=== PATIENT | female | born 1995 | race Caucasian/White ===

== ENCOUNTER 2019-10-25 18:06 | Observation (INO) | payer OTHER, SELFPAY ==
--- NOTE | 2019-10-25 19:14 | PM.OBTRLD ---
Visit Information Visit Information Date of evaluation: 10/25/19 On-call OB Provider: Jessica Koo Reason for Evaluation: Yes other Comments/Additional reasons for admission: nausea and vomitting at 21 weeks Vital Signs Vital Signs: BP 129/75, P80, T 97.7 Evaluation Evaluation Baseline heart rate: 150 Variability: Average (6-10) (appropriate for 21 week gestation) Contraction Frequency (minutes): 15 Uterine Contraction Intensity: Mild Category of Tracing: I (for 21 week) Diagnosis, Plan/Disposition Final Diagnosis (1) 21 weeks gestation of : Current Visit: No Status: Acute (2) Emesis: Current Visit: No Status: Acute Plan/Disposition Plan: Pt with emesis and cramping at 21 weeks. [place] better after 1 liter IV fluids and Zofran OB Disposition: home
[2019-10-25] MEDS: LACTATED RINGERS 1,000 ML 1000 ML IV (19:20)
[2019-10-25] MEDS: ONDANSETRON 4 MG/2 ML INJ IV (19:39)
[2019-10-25 19:56] LABS: Appearance Urine UA CLEAR; Bilirubin Urine UA NEGATIVE (NEGATIVE); Color Urine UA YELLOW; Glucose Urine UA NEGATIVE (Negative); Ketones Urine UA 2+ (NEGATIVE); Leukocyte Esterase Urine UA NEGATIVE (NEGATIVE); Nitrite Urine UA NEGATIVE (Negative); Occult Blood Urine UA NEGATIVE (Negative); Protein Urine UA NEGATIVE (Negative); Specific Gravity Urine UA <=1.005 (1.000-1.035); Urobilinogen Urine UA 0.2 E.U./dL (0.2)
[2019-10-25 19:58] LABS: pH Urine UA 5.5 (4.5-8.0)
== END 2019-10-25 20:28 | disposition home or self-care (01) ==
LOC: LABOR 18:08
PROVIDERS: Admitting Provider Specialist; Referring Provider Specialist; Visit Provider Specialist
DX: O21.8 Other vomiting complicating pregnancy (principal); O47.02 False labor before 37 completed weeks of gestation, second trimester; Z3A.21 21 weeks gestation of pregnancy
CPT/HCPCS: 59050; 81003; 87086; 96360; G0378; G0379; J2405